=== PATIENT | female | born 1995 | race Caucasian/White ===

== ENCOUNTER 2021-03-20 08:13 | Inpatient (IN) | payer BC ==
[~2021-03-20] VITALS: Ht 162.6 cm; Wt 96.2 kg
[~2021-03-20 08:13] MED LIST: COLACE 100MG C100 MG PO; IBUPROFEN600 MG PO; KEPPRA500 MG PO; LORTAB 5-325 M1 EACH PO; NAPROSYN500 MG PO; PERCOCET 5/325 T1 EA PO; PHENERGAN 12.12.5 M1 PO; PRENATABS FA T1 EACH PO; SPRINTEC 28 DA1 EACH PO; SYNTHROID88 MCG PO
[2021-03-20 08:42] LABS: HEMOGLOBIN 13.7 gm/dl (12.3-15.3); RED BLOOD COUNT 4.54 M/UL (4.00-5.10); WHITE BLOOD COUNT 10.8 K/UL (4.5-11.0)
[2021-03-20] MEDS ORDERED: PRENATAL VITAM1 EAC6 PO (09:02)
[2021-03-20] MEDS ORDERED: IBUPROFEN600 MG PO (12:47)
[2021-03-20] MEDS ORDERED: PERCOCET 5-3251 EACH PO (12:47)
[2021-03-20] MEDS ORDERED: COLACE 100MG C100 MG PO (12:47)
[2021-03-20] MEDS ORDERED: FERROUS SULFAT325 MG PO (12:47)
[2021-03-21 01:59] LABS: HEMOGLOBIN 11.4 gm/dl (12.3-15.3)
== END 2021-03-22 18:18 | disposition home or self-care (01) | DRG 787 ==
LOC: OB 08:13
PROVIDERS: ADMIT Obstetrics & Gynecology
PROC: 4A1HXCZ Monitoring of Products of Conception, Cardiac Rate, External Approach (ICD-10-PCS; 2021-03-20)
PROC: 3E0234Z Introduction of Serum, Toxoid and Vaccine into Muscle, Percutaneous Approach (ICD-10-PCS; 2021-03-20)
PROC: 10D00Z1 Extraction of Products of Conception, Low, Open Approach (ICD-10-PCS; principal; 2021-03-20 09:00)
DX: O34.211 Maternal care for low transverse scar from previous cesarean delivery (principal); O99.354 Diseases of the nervous system complicating childbirth; G40.919 Epilepsy, unspecified, intractable, without status epilepticus; Z20.822 Contact with and (suspected) exposure to COVID-19; Z3A.39 39 weeks gestation of pregnancy; Z37.0 Single live birth; O99.284 Endocrine, nutritional and metabolic diseases complicating childbirth; E03.9 Hypothyroidism, unspecified; Z83.3 Family history of diabetes mellitus; Z23 Encounter for immunization; Z90.49 Acquired absence of other specified parts of digestive tract; Z82.49 Family history of ischemic heart disease and other diseases of the circulatory system
CPT/HCPCS: 36415; 81001; 85014; 85018; 85025; 90471; 90715; C9113; J0690; J1170; J2405; J2550; J2590; J2704; J7120